=== PATIENT | male | born 1950 | race Caucasian/White ===

== ENCOUNTER 2016-11-28 20:38 | Emergency (ER) | payer MEDICAID, MEDICARE ==
[~2016-11-28 20:38] MED LIST: ADVAI500I PO; ALBU.5I NEB; ALBU8I INH; ASPI81 PO; CARV12.5 PO; CEFA2SOL IV; DIPH50IN2 IV; EPIN1INJ20 SQ/IV; GUAI600 PO; HYDR250P IV PUSH; LORTA5 PO; LOSA50TA PO; TAMS0.4C67 PO; ZAFI10TA PO
[2016-11-28 20:41] VITALS: BP 124/62; PULSE 92; RESP 16; TEMP 98.3; O2SAT 96
--- NOTE | 2016-11-28 21:08 | PD ---
HPI Chief Complaint: Skin Problem Time Seen by Provider: 21:00 Travel History International Travel<30 days: No Contact w/Intl Traveler<30days: No Traveled to known affect area: No History of Present Illness HPI 66-year-old male presents for evaluation of soft tissue swelling in the right antecubital fossa. He injected steroids in the right antecubital fossa one week ago. He has now had focal soft tissue swelling for the past 2 days. Area is tender to palpation. He denies any joint pain. He denies any fevers, chills. He denies any drainage. He has no other complaints at this time. PFSH Past Medical History Asthma: Yes Cancer: No Cardiovascular Problems: Yes (CHF) Diabetes: No Hepatitis: Yes (HAVE THE ANTIBODIES BUT NEVER DIAGNOSED) Hiatal Hernia: No Respiratory: Yes (hx of asthma, POSS LEGIONAIRES DISEASE) Pneumonia: Yes Thyroid Disease: No Past Surgical History Abdominal Surgery: No Cardiac Surgery: No Ear Surgery: No Endocrine Surgery: No Eye Surgery: No Genitourinary Surgery: No Gynecologic Surgery: No Oral Surgery: Yes (TONSILLECTOMY AND ADNOIDECTOMY) Pacemaker: No Thoracic Surgery: No Other Surgery: Yes Social History Alcohol Use: Yes (daily couple of drinks) Tobacco Use: Yes (cigars occ) Substance Use: Yes (steroids ) Allergies-Medications (Allergen,Severity, Reaction): Coded Allergies: No Known Allergies (Verified , 11/28/16) Reported Meds & Prescriptions Reported Meds & Active Scripts Active Keflex (Cephalexin) 500 Mg Cap 500 Mg PO Q6H 10 Days Bactrim DS (Sulfamethoxazole-Trimethoprim) 800-160 Mg Tab 1 Tab PO BID Reported Carvedilol 12.5 Mg Tab 12.5 Mg PO BID Review of Systems Except as stated in HPI: all other systems reviewed are Neg Physical Exam Narrative GENERAL: Well-developed well-nourished male in no acute distress SKIN: Warm and dry. 2 cm abscess to the right decubital fossa. Tender to palpation. No surrounding erythema. No proximal streaking. No axillary lymphadenopathy. No joint swelling. HEAD: Atraumatic. Normocephalic. EYES: Pupils equal and round. No scleral icterus. No injection or drainage. ENT: No nasal bleeding or discharge. Mucous membranes pink and moist. NECK: Trachea midline. No JVD. CARDIOVASCULAR: Regular rate and rhythm. No murmur appreciated. RESPIRATORY: No accessory muscle use. Clear to auscultation. Breath sounds equal bilaterally. GASTROINTESTINAL: Abdomen soft, non-tender, nondistended. MUSCULOSKELETAL: No obvious deformities. No joint effusion, no evidence of a septic arthritis. Compartments of the arm are soft. Data Data Last Documented VS Vital Signs Date Time Temp Pulse Resp B/P Pulse Ox O2 Delivery O2 Flow Rate FiO2 11/28/16 21:10 18 11/28/16 20:41 98.3 92 124/62 96 Room Air Orders Lidocai-Epi 1%-1:100,000 Inj (Xylocaine- (11/28/16 21:15) Sulfamet-Trimeth Ds 800-160 Mg (Bactrim (11/28/16 21:30) Cephalexin (Keflex) (11/28/16 21:30) Wound Culture And Gram Stain (11/28/16 21:20) MDM Medical Decision Making Medical Screen Exam Complete: Yes Emergency Medical Condition: Yes Medical Record Reviewed: Yes Differential Diagnosis Abscess, hematoma, IV infiltration, cellulitis Narrative Course 66-year-old male injected steroids in the right antecubital fossa 1 week ago. He presents with 2 days of soft tissue swelling focally and tenderness. Examination reveals a small cutaneous abscess with no evidence of significant cellulitis, no septic arthritis, no compartment syndrome, no lymphangitis. The plan is to drain the wound and start the patient on empiric antibiotics. He verbally consents to incision and drainage. There is no evidence of systemic illness that would warrant admission or blood cultures. He is encouraged to return here for worsening symptoms. He is encouraged to cease illicit steroid use. Procedures Procedure Narrative INCISION AND DRAINAGE OF ABSCESS: The area was prepped and was sterilely draped. A subcutaneous wheal of 1% Xylocaine with epinephrine with a total number 6 mL was used to anesthetize the area. The area was properly anesthetized. A number 11 scalpel was used to make a 1 -cm incision across the area of the abscess. Cultures were obtained. The abscess was drained an irrigated with normal saline. Diagnosis Primary Impression: Abscess Additional Instructions: Antibiotics as prescribed. Warm compresses several times a day 10 minutes at a time. Return for new or worsening symptoms. Med/Other Pt SpecificInfo: Prescription(s) given Scripts Cephalexin (Keflex)500 Mg [id number] Mg PO Q6H 10 Days Ref 0 Prov:Tarik Vargas MD 11/28/16 Sulfamethoxazole-Trimethoprim (Bactrim DS)800-160 Mg Tab1 Tab PO BID #20 TAB Ref 0 Prov:Tarik Vargas MD 11/28/16 Disposition: 01 DISCHARGE HOME Condition: Stable Pete Rendon Nov 28, 2016 21:08
[2016-11-28] MEDS ORDERED: CARV12.52 PO (21:09)
[2016-11-28] MEDS ORDERED: LIDOCAINE 1%/EPINEPHrine 1:100,000 SOLN 20 ML VIAL INFIL ONE (21:15)
[2016-11-28] MEDS ORDERED: BACT800T5 PO (21:22)
[2016-11-28] MEDS ORDERED: CEPH-460 PO (21:22)
[2016-11-28] MEDS ORDERED: CEPHALEXIN MONOHYDRATE 500 MG CAP PO ONE (21:30)
[2016-11-28] MEDS ORDERED: SULFAMETHOXAZOLE-TRIMETHOPRIM DS 800-160 MG TAB PO ONE (21:30)
[2016-11-28] MEDS ORDERED: ACETAMINOPHEN/CODEINE 300 MG/30 MG TAB PO ONE (21:45)
== END 2016-11-28 22:02 | disposition home or self-care (01) ==
LOC: NEPB 20:38
DX: L02.413 Cutaneous abscess of right upper limb (principal); B95.0 Streptococcus, group A, as the cause of diseases classified elsewhere; Z72.0 Tobacco use; Z87.09 Personal history of other diseases of the respiratory system; Z86.79 Personal history of other diseases of the circulatory system; Z87.01 Personal history of pneumonia (recurrent)
CPT/HCPCS: 10060; 87070; 87205